=== PATIENT | male | born 1990 | race Caucasian/White ===

== ENCOUNTER 2017-11-23 21:46 | Emergency (ER) | payer BC ==
[~2017-11-23] VITALS: Ht 177.8 cm; Wt 113.0 kg
[2017-11-23 21:48] VITALS: BP 141/80
[2017-11-23] MEDS ORDERED: LIDOCAINE-MPF 2% ,5ML ONE (22:25)
[2017-11-23] MEDS ORDERED: DIPH,PERTUSS(ACELL),TET VAC/PF 0.5 ML IM-VACC ONE ×2 (22:26→22:30)
== END 2017-11-23 23:16 | disposition home or self-care (01) ==
LOC: ED 23:00
DX: S01.01XA Laceration without foreign body of scalp, initial encounter (principal); S50.811A Abrasion of right forearm, initial encounter; S80.811A Abrasion, right lower leg, initial encounter; W01.0XXA Fall on same level from slipping, tripping and stumbling without subsequent striking against object, initial encounter; Y93.89 Activity, other specified; Y92.832 Beach as the place of occurrence of the external cause; Y99.8 Other external cause status
CPT/HCPCS: 12002; 90471; 90715; 99283